=== PATIENT | female | born 1945 | race Caucasian/White ===

== ENCOUNTER → 2024-01-13 10:16 | Outpatient (BNVA) | payer MEDICARE, MEDICAID, SELFPAY | PROVIDERS: PCP Internal Medicine; Visit Provider Psychiatry & Neurology Neurology | DX: R29.898 Other symptoms and signs involving the musculoskeletal system (principal); R20.2 Paresthesia of skin; M79.601 Pain in right arm; M79.602 Pain in left arm; M79.606 Pain in leg, unspecified; G56.03 Carpal tunnel syndrome, bilateral upper limbs | CPT/HCPCS: 99203 ==

== ENCOUNTER → 2024-03-10 09:57 | Outpatient (BNVA) | payer MEDICARE, MEDICAID, SELFPAY | PROVIDERS: PCP Internal Medicine; Visit Provider Psychiatry & Neurology Neurology | DX: G62.89 Other specified polyneuropathies (principal); M79.606 Pain in leg, unspecified; R20.2 Paresthesia of skin | CPT/HCPCS: 95910 ==

== ENCOUNTER → 2024-03-17 12:43 | Outpatient (BNVA) | payer MEDICARE, MEDICAID, SELFPAY | PROVIDERS: PCP Internal Medicine; Visit Provider Psychiatry & Neurology Neurology | DX: G56.03 Carpal tunnel syndrome, bilateral upper limbs (principal); M79.641 Pain in right hand; M79.642 Pain in left hand; R29.898 Other symptoms and signs involving the musculoskeletal system; R20.2 Paresthesia of skin; M79.601 Pain in right arm; M79.602 Pain in left arm | CPT/HCPCS: 95912 ==

== ENCOUNTER → 2024-04-09 12:33 | Outpatient (BNVA) | payer MEDICARE, MEDICAID, SELFPAY | PROVIDERS: PCP Internal Medicine; Visit Provider Psychiatry & Neurology Neurology | DX: G62.9 Polyneuropathy, unspecified (principal); M79.641 Pain in right hand; M79.642 Pain in left hand; M79.606 Pain in leg, unspecified; R20.2 Paresthesia of skin; M79.601 Pain in right arm; M79.602 Pain in left arm; R29.898 Other symptoms and signs involving the musculoskeletal system; E53.8 Deficiency of other specified B group vitamins; G56.03 Carpal tunnel syndrome, bilateral upper limbs; Z86.73 Personal history of transient ischemic attack (TIA), and cerebral infarction without residual deficits | CPT/HCPCS: 36415; 82607; 82746; 83090; 83735; 83921; 84439; 84443; 84481; 86592; 86617; 86780; 99212 ==

== ENCOUNTER 2024-05-08 11:13 | Outpatient (CLI) | payer MEDICARE, MEDICAID, SELFPAY ==
--- NOTE | 2024-05-08 13:00 | MR_ITS ---
WS: [id number] MRI LUMBAR SPINE NONCONTRAST HISTORY: M79.641 - Pain in right hand, chronic low back pain for years. COMPARISON: None available. TECHNIQUE: Sagittal and axial multisequence imaging is submitted. Partial osseous fusion at C6-7. Increase in thoracic kyphosis. Mild increase in the lumbar lordosis. 2 mm anterolisthesis of L4. Disc spaces are all narrowed and desiccated. No fracture. Conus terminates normally at L1-2 disc level. L1-L2: Diffuse annular disc bulging and osteophytic ridging. Central disc bulging encroaching upon th e central canal and subarticular recesses. Mild central, bilateral subarticular recess and foraminal stenosis. L2-L3: Marked annular disc bulging encroaching upon the ventral thecal sac and subarticular recesses. Moderate central, bilateral subarticular recess and foraminal stenosis. L3-L4: Marked annular disc bulging and osteophytic ridging. Effacement of fat in the foramina. Severe central, subarticular recess and foraminal stenosis. L4-L5: Mild annular disc bulging. Marked ligamentum flavum hypertrophy and facet arthritis. There is significant narrowing of the central canal and subarticular recesses. Severe central, bilateral subar ticular recess and moderate foraminal stenosis, RIGHT greater than LEFT. L5-S1: Mild diffuse annular disc bulging with facet and ligamentum flavum hypertrophy. Moderate bilat eral foraminal stenosis. Very mild subarticular recess encroachment and central stenosis. MR/MR lumbar spine wo con* [id number] IMPRESSION: 1. Multilevel degenerative disc disease and facet arthritis resulting in steno sis at multiple levels. 2. L3-4: Severe central, subarticular recess and foraminal stenosis. 3. L4-5: Severe central, bilateral subarticular recess and moderate foraminal stenosis. 4. L2-3: Moderate central, bilateral subarticular recess and foraminal stenosi s. 5. L1-2: Mild central, bilateral subarticular recess and foraminal stenosis. 6. L5-S1: Moderate bilateral foraminal stenosis.
== END 2024-05-08 11:14 | disposition home or self-care (01) ==
PROVIDERS: PCP Internal Medicine; Visit Provider Psychiatry & Neurology Neurology
DX: M51.36 Other intervertebral disc degeneration, lumbar region (principal); M47.896 Other spondylosis, lumbar region; M99.63 Osseous and subluxation stenosis of intervertebral foramina of lumbar region; M99.64 Osseous and subluxation stenosis of intervertebral foramina of sacral region; M79.606 Pain in leg, unspecified; R20.2 Paresthesia of skin; M79.601 Pain in right arm; M79.602 Pain in left arm; R29.898 Other symptoms and signs involving the musculoskeletal system
CPT/HCPCS: 72148

== ENCOUNTER → 2024-08-05 15:30 | Outpatient (BNVA) | payer MEDICARE, MEDICAID, SELFPAY | PROVIDERS: PCP Internal Medicine; Visit Provider Psychiatry & Neurology Neurology | DX: I69.391 Dysphagia following cerebral infarction (principal); M79.641 Pain in right hand; M79.642 Pain in left hand; R20.2 Paresthesia of skin; M79.601 Pain in right arm; M79.602 Pain in left arm; R29.898 Other symptoms and signs involving the musculoskeletal system; G45.9 Transient cerebral ischemic attack, unspecified; G40.909 Epilepsy, unspecified, not intractable, without status epilepticus; G62.9 Polyneuropathy, unspecified | CPT/HCPCS: 99212; 99213 ==

== ENCOUNTER → 2024-08-13 13:01 | Outpatient (BNVA) | payer MEDICARE, MEDICAID, SELFPAY | PROVIDERS: PCP Internal Medicine; Visit Provider Orthopaedic Surgery | DX: M54.50 Low back pain, unspecified (principal); M54.9 Dorsalgia, unspecified; G89.29 Other chronic pain | CPT/HCPCS: 72110; 99204 ==

== ENCOUNTER → 2025-09-09 10:04 | Outpatient (BNVA) | payer MEDICARE, MEDICAID, SELFPAY | PROVIDERS: PCP Internal Medicine; Visit Provider Internal Medicine | DX: E88.810 Metabolic syndrome (principal); I10 Essential (primary) hypertension; E78.2 Mixed hyperlipidemia; I25.10 Atherosclerotic heart disease of native coronary artery without angina pectoris; R73.9 Hyperglycemia, unspecified; Z95.5 Presence of coronary angioplasty implant and graft | CPT/HCPCS: 99204 ==

== ENCOUNTER → 2025-11-05 09:33 | Outpatient (BNVA) | payer MEDICARE, MEDICAID, SELFPAY | PROVIDERS: PCP Internal Medicine; Referring Provider Family Medicine; Visit Provider Internal Medicine | DX: J44.9 Chronic obstructive pulmonary disease, unspecified (principal); R91.8 Other nonspecific abnormal finding of lung field; I25.10 Atherosclerotic heart disease of native coronary artery without angina pectoris; R00.9 Unspecified abnormalities of heart beat; Z95.5 Presence of coronary angioplasty implant and graft; Z87.891 Personal history of nicotine dependence; R06.00 Dyspnea, unspecified | CPT/HCPCS: 99204; Q3014 ==